=== PATIENT | male | born 1965 | race Caucasian/White ===

== ENCOUNTER 2019-07-26 23:22 | Emergency (ER) | payer SELFPAY, OTHER ==
[2019-07-27] MEDS: IBUPROFEN 800 MG TAB PO (00:41)
== END 2019-07-27 03:25 | disposition home or self-care (01) ==
LOC: FTE 23:22
DX: S92.002A Unspecified fracture of left calcaneus, initial encounter for closed fracture (principal); W10.9XXA Fall (on) (from) unspecified stairs and steps, initial encounter; Y92.9 Unspecified place or not applicable
CPT/HCPCS: 29515; 72100; 73610; 73630-LT; 99284-25

== ENCOUNTER 2019-08-01 11:31 | Emergency (ER) | payer SELFPAY | END 2019-08-01 13:15 | disposition home or self-care (01) | LOC: FTE 13:15 | DX: S92.002D Unspecified fracture of left calcaneus, subsequent encounter for fracture with routine healing (principal); X58.XXXD Exposure to other specified factors, subsequent encounter | CPT/HCPCS: 99282 ==